=== PATIENT | female | born 1975 | race Caucasian/White ===

== ENCOUNTER 2017-07-30 12:39 | Emergency (ER) | payer OTHER ==
[~2017-07-30] VITALS: Ht 160 cm; Wt 65.0 kg
[~2017-07-30 12:39] MED LIST: CYCL5TAB PO; DICL-86 PO; Z.0.BCPILL PO
[2017-07-30 12:40] VITALS: BP 119/74; PULSE 72; RESP 15; TEMP 98.5; O2SAT 96
[2017-07-30] MEDS ORDERED: METHOCARBAMOL 500 MG TAB PO ONE (14:45)
[2017-07-30] MEDS ORDERED: IBUPROFEN 800 MG TAB PO ONE (14:45)
[2017-07-30] MEDS ORDERED: IBUP800T23 PO (14:48)
[2017-07-30] MEDS ORDERED: ROBA500T PO (14:48)
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
== END 2017-07-30 14:59 | disposition home or self-care (01) ==
LOC: NEPK 12:39
DX: M54.6 Pain in thoracic spine (principal); S29.012A Strain of muscle and tendon of back wall of thorax, initial encounter; V49.49XA Driver injured in collision with other motor vehicles in traffic accident, initial encounter
CPT/HCPCS: 99283